=== PATIENT | female | born 1980 ===

== ENCOUNTER → 2017-01-10 | Outpatient (REF) | payer OTHER ==
[~2017-01-10] MED LIST: ACET50TA PO; IBUP-1114 PO; PRENTAB9 PO
== END ==
LOC: M LAB REF 08:57
PROVIDERS: ATTEND Specialist
DX: O32 Maternal care for malpresentation of fetus (principal); Z36 Encounter for antenatal screening of mother; Z3A.00 Weeks of gestation of pregnancy not specified

== ENCOUNTER → 2017-01-24 | Outpatient (REF) | payer OTHER | LOC: M LAB REF 17:02 | PROVIDERS: ATTEND Obstetrics & Gynecology | DX: Z36 Encounter for antenatal screening of mother (principal); Z3A.00 Weeks of gestation of pregnancy not specified ==

== ENCOUNTER 2017-01-30 06:49 | Inpatient (IN) | payer OTHER ==
[2017-01-30] VITALS (23 sets, daily range): BP systolic 83–119; BP diastolic 50–72
[~2017-01-30] VITALS: Ht 160 cm; Wt 76.6 kg
[~2017-01-30 06:49] MED LIST changes: -ACET50TA PO; -IBUP-1114 PO; -PRENTAB9 PO; +UNRESOLVED CLARIFICATION ENTRY XX SCH
[2017-01-30] MEDS ORDERED: PRENTAB9 PO (07:24)
[2017-01-30] MEDS ORDERED: LACTATED RINGER'S 1000 ML IV STA (07:54)
[2017-01-30] MEDS ORDERED: PROMETHAZINE INJ 25 MG/ML VIAL (J2550) IV ONE (08:00)
[2017-01-30] MEDS ORDERED: BUTORPHANOL 2 MG/ML INJ (J0595) IV ONE (08:00)
--- NOTE | 2017-01-30 08:21 | HPEPDOC ---
Obstetrical History & Physical General Date of Admission Jan 30, 2017 at 06:49 History of Present Illness 36-year-old 7, para 3033, estimated date of delivery 02/05/2017. Admitted at 39 weeks 1 days for elective induction of labor. Denies regular contractions, loss of fluid or bleeding. Fetus is active. Last normal menstrual period 04/23/2016 for initial AUZL of 01/18/2017. Sono at 7 weeks confirmed due date of 02/05/2017. Anatomy scan was within normal limits. She transferred to [facility] at 34 weeks. Pt denies HSV outbreak s/s in over 3 years. Chief Complaint: Other (elective induction of labor) Information Provided By: Patient Age: 36 : 7 Term: 3 Pre-term: 0 Abortions: 3 Livin Care Care: Good Care Dating Final EDC: Feb 05, 2017 Final EDC by: 1st trimester (US) EGA at Admission: 39 Antepartum Course Pre- weight (lbs.): 141 Admission Weight (lbs.): 171 Change in Weight (lbs.): 30 Past Medical History Past Obstetrical History #1: Past Obstetrical History: Primgravida Gestation: 39 Type of Delivery: Spontaneous Vaginal Del. Sex of : Male Complications: Yes (ASD) Past Obstetrical History #2: Past Obstetrical History: Multigravida Gestation: 39 Type of Delivery: Spontaneous Vaginal Del. Sex of Infant: Male Complications: No Past Obstetrical History #3: Past Obstetrical History: Multigravida Gestation: 39 Type of Delivery: Spontaneous Vaginal Del. 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, Herpes simplex virus(HSV) Past Medical History Medical History ASD Surgical History: Other (hysteroscopy) Family History Significant Family History: Diabetes, Heart disease, Hypertension, Other ( Hodgkin's lymphoma) Social History Marital Status: Family situation: Spouse/partner home Psychosocial History: No pertinent psych hx * Smoker: non-smoker Alcohol: Denies Drugs: denies Abuse Violence Screening Have you been hit/kicked/slapp: No Have you been sexually assault: No Allergies Coded Allergies: No Known Allergies (Unverified , 01/30/17) Medications Scheduled Multivitamins/ ( 27-0.8 mg) 1 Tab Tab, 1 TAB PO DAILY Physical Examination Physical Examination GENERAL: Alert and oriented times three. BREAST: . ABDOMEN: Gravid and non-tender to touch. FETUS: Is vertex (VTX) by sterile vaginal examination (SVE), fetus is vertex ( VTX) by Berry. HEART RATE: Regular rate and rhythm. LUNGS: Clear to auscultation (CTA). EXTREMITIES: No edema. No clonus. Pertinent Laboratoy Data Blood Type: O+ RBC Antibody Screen: Negative HIV: Negative Hepatitis B: Negative Hepatitis C: Unknown Rapid Plasma Reagin: Nonreactive Rubella: Immune Chlamydia/Gonorrhea: Negative Group B Streptococcus: Negative Glucose Tolerance Test: 114 Anatomy Ultrasound Ultrasound Date: Sep 07, 2016 Placenta Location: Anterior Normal Anatomy: Yes Placenta Previa: No Estimated Weight (grams): 269 Vaginal Examination Dilation: 1cm Effacement: 40-50% Station: -3 Cervical Consistency: Soft Cervical Position: Posterior Presentation: Cephalic presentation Position: Vertex (occiput) Assessment Heart Rate (FHR): 150 Variability: Moderate Accelerations: Positive Decelerations: None Tocometer Contractions: Yes Frequency: irregular, greater than 9 min/apart Duration: greater than 60 seconds Strength: palpated as mild Assessment/Plan Assessment Jenny is a 36-year-old (G). 7 para (P) 3 -0 -3-3 at 39 + 1 weeks by 7- week ultrasound. Presents to Labor and Delivery (L&D) for elective induction of labor at 39+ weeks gestation. Plan Admit and orient per consult Dr Tovar. Dr Tovar is aware of HSV status Information Systems Auditor and consent. Diet: Regular. Group B Streptococcus (GBS) negative. Labs and intravenous (IV) per unit protocol. Counseled on Pitocin and induction of labor (IOL). Misoprostol cervical ripening to start. Lactated Ringers (LR): Bolus 500 mL, then at 125 mL/hr. Pt plans epidural for labor coping Anticipate normal spontaneous vaginal delivery. C-S as appropriate. Tamie Blackmon CNM Jan 30, 2017 08:20
[2017-01-30] MEDS: miSOPROStol 50 MCG 1/2 TAB (S0191) PO SCH ×2 (08:54→15:51)
[2017-01-30 09:02] LABS: MEAN CORPUSCULAR HEMOGLOBIN 31.8 pg (27.0-33.0); MEAN CORPUSCULAR HGB CONC 34.6 g/dl (32.0-36.5); MEAN CORPUSCULAR VOLUME 91.9 fl (80.0-96.0); RED CELL DISTRIBUTION WIDTH 13.4 % (11.5-14.5); WHITE BLOOD COUNT 8.5 K/mm3 (4.0-10.0)
[2017-01-30] MEDS ORDERED: SIMETHICONE 80 MG CHEW TAB PO PRN (10:15)
[2017-01-30] MEDS ORDERED: CALCIUM CARBONATE 500 MG CHEW U/D PO PRN (18:30)
[2017-01-30] MEDS ORDERED: OXYTOCIN 30 UNITS IN 0.9% NaCl 500ML IV BAG (J2590) As Ordered ONE (19:56)
[2017-01-30] MEDS ORDERED: LR 1,000 ML IV SCH (20:18)
[2017-01-30] MEDS ORDERED: OXYTOCIN DRIP 30 UNITS in APPROPRIATE DILUENT 1 EA IV SCH ×2 (20:30→22:55)
[2017-01-30] MEDS ORDERED: FENTANYL 2MCG/ML ROPIVACAINE 0.2% IN 0.9% NACL 200ML IVBAG As Ordered ONE (21:32)
[2017-01-30] MEDS ORDERED: NALOXONE INJ 0.4 MG/1 ML VIAL (J2310) IV PRN (22:15)
[2017-01-30] MEDS ORDERED: REFRIGERATOR IV KEYS XX PRN (22:15)
[2017-01-30] MEDS ORDERED: ePHEDrine SULFATE 25 MG/5 ML(5MG/ML) SYRINGE IV PRN (22:15)
[2017-01-30] MEDS ORDERED: ONDANSETRON 4MG/2ML VIAL (J2405) IV PRN (22:15)
[2017-01-30] MEDS ORDERED: EPIDURAL COMMENT XX SCH (22:15)
[2017-01-30] MEDS ORDERED: EPIDURAL/PCA KEYS XX PRN (22:15)
[2017-01-30] MEDS ORDERED: LACTATED RINGER'S 1000 ML IV PRN (22:15)
[2017-01-30] MEDS ORDERED: diphenhydrAMINE INJ 50MG/ML VIAL (J1200) IV PRN (22:15)
[2017-01-30] MEDS ORDERED: FENTANYL/ROPIVACAINE/NACL BAG 200 ML EPIDURAL SCH (22:15)
[2017-01-30] MEDS ORDERED: MOM 30ML SUSPENSION UDC PO PRN (23:00)
[2017-01-30] MEDS ORDERED: RHOGAM 300 MCG (1500 IU) INJ (J2790) IM SCH (23:00)
[2017-01-30] MEDS ORDERED: DIBUCAINE 1% OINTMENT 30GM TOP PRN (23:00)
[2017-01-30] MEDS ORDERED: ANUSOL HC CREAM 30GM TOP PRN (23:00)
[2017-01-30] MEDS ORDERED: METHYLERGONOVINE MALEATE 0.2 MG TAB PO PRN (23:00)
[2017-01-30] MEDS ORDERED: MEASLES,MUMPS,RUBELLA VACCINE INJ (MMR-II) (90707) SC SCH (23:00)
[2017-01-30] MEDS ORDERED: ACETAMINOPHEN 500 MG TAB PO PRN (23:00)
--- NOTE | 2017-01-31 00:28 | DN ---
DATE: 01/30/2017 TIME OF : 2235 hours GENDER: Female. SCORES: 9 and 9. WEIGHT: 3530 grams or 7 pounds 13 ounces. ANESTHESIA: Epidural. LACERATIONS: None. ESTIMATED BLOOD LOSS: 300 mL. COUNTS: 5 laparotomy sponges accounted for prior to and after delivery. DELIVERY NOTE: On 01/30/2017 at 2235 hours, the patient, a 36-year-old, 7, now para 4 had a spontaneous vaginal delivery of a liveborn female infant. scores of 9 and 9. Weight was 7 pounds 13 ounces, 3530 grams. Head was delivered occiput anterior (OA) over intact perineum, followed by delivery of right anterior shoulder, left posterior shoulder and corpus. was handed to mom with a good cry. Cord was clamped times two and was cut by the father of the baby under my direction. The placenta was then drained and delivered grossly intact. A premixed bag of 500 mL of normal saline with 30 units of Pitocin was bolused along with uterine massaged until the uterus was firm. On inspection, the cervix, vagina, perineum was grossly intact and hemostatic. Mother and baby recovering in stable condition. The couple has decided to name their daughter Donovan.
[2017-01-31 01:30] VITALS: BP 118/67
[2017-01-31] MEDS: IBUPROFEN 800 MG TAB PO PRN ×3 (04:03→20:36)
[2017-01-31 05:45] VITALS: BP 99/50
[2017-01-31] MEDS: PRENATAL VITAMINS CHEWABLE TABLET PO SCH (08:37)
[2017-01-31] MEDS: PERCOCET 5MG/325MG TAB PO PRN ×3 (08:38→20:35)
[2017-01-31] MEDS: DOCUSATE SODIUM 100 MG CAP PO PRN (11:32)
[2017-01-31 18:00] VITALS: BP 112/62
[2017-02-01] MEDS: PERCOCET 5MG/325MG TAB PO PRN (03:28)
[2017-02-01] MEDS: IBUPROFEN 800 MG TAB PO PRN ×2 (04:18→11:09)
[2017-02-01 06:18] VITALS: BP 103/61
[2017-02-01] MEDS: PRENATAL VITAMINS CHEWABLE TABLET PO SCH (08:38)
[2017-02-01] MEDS: DOCUSATE SODIUM 100 MG CAP PO PRN (08:38)
[2017-02-01] MEDS ORDERED: INFLUENZA QUADRIVALENT PF VACCINE 0.5ML SYRINGE (90686) IM ONE ×2 (09:00)
[2017-02-01] MEDS ORDERED: ACET50TA PO (11:32)
[2017-02-01] MEDS ORDERED: IBUP-1114 PO (11:32)
== END 2017-02-01 13:45 | disposition home or self-care (01) | DRG 775 ==
LOC: M LDI 06:49 → M OBS 01-31 01:30
PROVIDERS: ADMIT Obstetrics & Gynecology; ATTEND Obstetrics & Gynecology
PROC: 10E0XZZ Delivery of Products of Conception, External Approach (ICD-10-PCS; principal; 2017-01-30)
PROC: 3E0DXGC Introduction of Other Therapeutic Substance into Mouth and Pharynx, External Approach (ICD-10-PCS; 2017-01-30)
DX: O80 Encounter for full-term uncomplicated delivery (principal); Z37.0 Single live birth; Z3A.39 39 weeks gestation of pregnancy; Z79.899 Other long term (current) drug therapy

== ENCOUNTER → 2017-09-25 | Outpatient (REF) | payer OTHER ==
[2017-09-26 10:38] LABS: HEPATITIS B SURFACE ANTIBODY NEGATIVE (POSITIVE)
[2017-09-26 10:44] LABS: HEPATITIS B SURFACE ANTIGEN NEGATIVE (NEGATIVE)
[2017-09-26 11:07] LABS: HEPATITIS B CORE ANTIBODY IGM NEGATIVE (NEGATIVE)
== END ==
LOC: M LABDRAW1 13:38
DX: D68.61 Antiphospholipid syndrome (principal)
CPT/HCPCS: 86706

== ENCOUNTER → 2018-01-28 | Outpatient (REF) | payer OTHER | LOC: M LAB REF 17:16 | DX: J02.9 Acute pharyngitis, unspecified (principal) | CPT/HCPCS: 87070 ==